=== PATIENT | male | born 1990 | race Caucasian/White ===

== ENCOUNTER → 2018-04-26 | Outpatient (CLI) | payer BC ==
--- NOTE | 2018-04-26 16:03 | XR ---
EXAMINATION TYPE: XR ankle complete 3 views LT, XR foot complete 3 views LT DATE OF EXAM: 04/26/2018 COMPARISON: NONE HISTORY: 27 year-old male left foot injury FINDINGS: Ankle: Ankle mortise is congruent with preservation of the distal tibiofibular overlap. Slight delineation t o the Achilles tendon. Subtalar joint is aligned. No acute fracture, subluxation, or dislocation. Inc idental small bone island within the medial metaphysis of the distal tibia. Foot: No acute fracture, subluxation, or dislocation. Tiny os peroneum noted. No acute fracture, subluxatio n, or dislocation. IMPRESSION: Ankle and foot without acute osseous abnormality seen.
== END | disposition home or self-care (01) ==
LOC: RADXRMAIN 13:54
PROVIDERS: ATTEND Family Medicine
DX: S99.922A Unspecified injury of left foot, initial encounter (principal)

== ENCOUNTER 2019-03-01 03:36 | Emergency (ER) | payer BC, OTHER ==
[2019-03-01] MEDS ORDERED: SODIUM CHLORIDE 0.9% 1,000 ML IV STA (03:47)
[2019-03-01] MEDS ORDERED: ONDANSETRON 4 MG/2 ML VIAL IVP STA (03:48)
[2019-03-01] MEDS ORDERED: LORazepam 2 MG/ML INJ IV STA (03:48)
--- NOTE | 2019-03-01 03:49 | ED ---
Arrhythmia/Palpitations HPI - General Chief Complaint: Arrhythmia/Palpitations Stated Complaint: Heart Palpitations/Chest burning Source: patient, family, RN notes reviewed, old records reviewed Mode of arrival: ambulatory Limitations: no limitations - History of Present Illness Initial Comments: This is a 28-year-old female the ER for evaluation. This male presents for evaluation of heart pain palpitations and anxiety. No significant medical history, takes no medications. Patient does admit to being and recent ames in [facility] with 4 days of straight drinking. states she's had anxiety thousand 900 inability to sleep denies fever. Patient states he feels like his heart is racing and it is very anxious. Denies chest pain. MD Complaint: rapid heart beat, "heart racing", palpitations -: hour(s) Context: occurred during rest Associated Symptoms: anxiety - Related Data Allergies Allergy/AdvReac Type Severity Reaction Status Date / Time No Known Allergies Allergy Verified 03/01/19 03:44 Review of Systems ROS Statement: Those systems with pertinent positive or pertinent negative responses have been documented in the HPI. ROS Other: All systems not noted in ROS Statement are negative. Past Medical History Past Medical History: No Reported History History of Any Multi-Drug Resistant Organisms: None Reported Past Surgical History: No Surgical Hx Reported Past Psychological History: No Psychological Hx Reported Smoking Status: Former smoker Past Alcohol Use History: Occasional Past Drug Use History: None Reported General Exam Limitations: no limitations General appearance: alert, in no apparent distress Head exam: Present: atraumatic, normocephalic, normal inspection Eye exam: Present: normal appearance, PERRL, EOMI. Absent: scleral icterus, conjunctival injection, periorbital swelling ENT exam: Present: normal exam, mucous membranes moist Neck exam: Present: normal inspection. Absent: tenderness, meningismus, lymphadenopathy Respiratory exam: Present: normal lung sounds bilaterally. Absent: respiratory distress, wheezes, rales, rhonchi, stridor Cardiovascular Exam: Present: regular rate, normal rhythm, normal heart sounds. Absent: systolic murmur, diastolic murmur, rubs, gallop, clicks GI/Abdominal exam: Present: soft, normal bowel sounds. Absent: distended, tenderness, guarding, rebound, rigid Extremities exam: Present: normal inspection, full ROM, normal capillary refill. Absent: tenderness, pedal edema, joint swelling, calf tenderness Back exam: Present: normal inspection Neurological exam: Present: alert, oriented X3, CN II-XII intact Psychiatric exam: Present: normal affect, normal mood Skin exam: Present: warm, dry, intact, normal color. Absent: rash Course Vital Signs 03/01/19 03/01/19 03:38 06:01 Temperature 98 F 98.3 F Pulse Rate 74 62 Respiratory 20 19 Rate Blood Pressure 155/81 131/82 O2 Sat by Pulse 99 98 Oximetry EKG Findings - EKG Comments: EKG Findings:: EKG shows sinus rhythm rate of 65, OH 126, QRS 04, QTc 405, Medical Decision Making - Medical Decision Making 28 male the ER for evaluation palpitations, no arrhythmia noted here in the ER labwork normal. A she is feeling better currently and can be discharged home - Lab Data Result diagrams: 03/01/19 03:55 03/01/19 03:55 Lab Results 03/01/19 03/01/19 03/01/19 Range/Units 03:55 03:55 03:55 WBC 6.8 (3.8-10.6) k/uL RBC 4.98 (4.30-5.90) m/uL Hgb 14.4 (13.0-17.5) gm/dL Hct 43.1 (39.0-53.0) % MCV 86.5 (80.0-100.0) fL MCH 28.9 (25.0-35.0) pg MCHC 33.4 (31.0-37.0) g/dL RDW 13.8 (11.5-15.5) % Plt Count 184 (150-450) k/uL Neutrophils % 62 % Lymphocytes % 27 % Monocytes % 6 % Eosinophils % 2 % Basophils % 1 % Neutrophils # 4.2 (1.3-7.7) k/uL Lymphocytes # 1.8 (1.0-4.8) k/uL Monocytes # 0.4 (0-1.0) k/uL Eosinophils # 0.1 (0-0.7) k/uL Basophils # 0.0 (0-0.2) k/uL D-Dimer 0.27 (<0.60) mg/L FEU Sodium 140 (137-145) mmol/L Potassium 4.1 (3.5-5.1) mmol/L Chloride 105 (98-107) mmol/L Carbon Dioxide 24 (22-30) mmol/L Anion Gap 11 mmol/L BUN 18 (9-20) mg/dL Creatinine 0.86 (0.66-1.25) mg/dL Est GFR (CKD-EPI)AfAm >90 (>60 ml/min/1.73 sqM) Est GFR (CKD-EPI)NonAf >90 (>60 ml/min/1.73 sqM) Glucose 134 H (74-99) mg/dL Calcium 9.9 (8.4-10.2) mg/dL Total Bilirubin 0.9 (0.2-1.3) mg/dL AST 37 (17-59) U/L ALT 27 (21-72) U/L Alkaline Phosphatase 90 (38-126) U/L Creatine Kinase 344 H (55-170) U/L Total Protein 7.2 (6.3-8.2) g/dL Albumin 5.0 (3.5-5.0) g/dL Lipase 183 (23-300) U/L Salicylates <1.0 mg/dL Acetaminophen <10.0 ug/mL Serum Alcohol <10 mg/dL Disposition Clinical Impression: Palpitations Disposition: HOME SELF-CARE Condition: Good Instructions (If sedation given, give patient instructions): Heart Palpitations (ED) Is patient prescribed a controlled substance at d/c from ED?: No Referrals: Shay Hong MD [Primary Care Provider] - 1-2 days
[2019-03-01 04:11] LABS: Basophils % (A) 1 %; Eosinophils # (A) 0.1 k/uL (0-0.7); Eosinophils % (A) 2 %; HCT 43.1 % (39.0-53.0); HGB 14.4 gm/dL (13.0-17.5); Lymphocytes # (A) 1.8 k/uL (1.0-4.8); Lymphocytes % (A) 27 %; MCH 28.9 pg (25.0-35.0); MCHC 33.4 g/dL (31.0-37.0); MCV 86.5 fL (80.0-100.0); Mean Platelet Volume 7.2; Monocytes # (A) 0.4 k/uL (0-1.0); Monocytes % (A) 6 %; Neutrophils # (A) 4.2 k/uL (1.3-7.7); Neutrophils % (A) 62 %; Platelet Count 184 k/uL (150-450); RBC 4.98 m/uL (4.30-5.90); RDW 13.8 % (11.5-15.5); WBC 6.8 k/uL (3.8-10.6)
[2019-03-01 04:21] LABS: ALT 27 U/L (21-72); AST 37 U/L (17-59); Acetaminophen <10.0 ug/mL; Alcohol <10 mg/dL; Alkaline Phosphatase 90 U/L (38-126); Anion Gap 11 mmol/L; Blood Urea Nitrogen 18 mg/dL (9-20); Calcium 9.9 mg/dL (8.4-10.2); Carbon Dioxide 24 mmol/L (22-30); Chloride 105 mmol/L (98-107); Creatine Kinase 344 U/L (55-170); Glucose 134 mg/dL (74-99); Lipase 183 U/L (23-300); Potassium 4.1 mmol/L (3.5-5.1); Salicylate <1.0 mg/dL; Sodium 140 mmol/L (137-145); Total Bilirubin 0.9 mg/dL (0.2-1.3); Total Protein 7.2 g/dL (6.3-8.2)
[2019-03-01 06:03] VITALS: BP 131/82; PULSE 62; RESP 19; TEMP 98.3
== END 2019-03-01 06:09 | disposition home or self-care (01) ==
LOC: EC 03:36
DX: R00.2 Palpitations (principal); F41.9 Anxiety disorder, unspecified; R07.89 Other chest pain; G47.00 Insomnia, unspecified; Z87.891 Personal history of nicotine dependence; Z53.20 Procedure and treatment not carried out because of patient's decision for unspecified reasons
CPT/HCPCS: 36415; 93005; 85379; 80053; 82550; 83690; 85025; 83520; 80329; 80320; 99285; 96374; 96361 ×2; J2060

== ENCOUNTER → 2022-12-16 | Outpatient (CLI) | payer MEDICAID ==
--- NOTE | 2022-12-16 10:20 | US ---
EXAMINATION TYPE: US axilla LT DATE OF EXAM: 12/16/2022 COMPARISON: NONE CLINICAL HISTORY: R22.2 swelling mass lump. Patient states feeling a lump in October and November. L ump and become bigger and is now visual in axilla. No recent illness. No recent vaccinations. TECHNIQUE: FINDINGS: Multiple images of patients palpable scanned. Two enlarged lymph nodes visualized. 1= Sh ort axis measurement= 2.4 cm and cortex = 12.7 mm. 2= Short axis measurement 1.5 cm and cortex = 8.0 mm . These do demonstrate central fatty hilum with central vascularity identified. IMPRESSION: There are 2 adjacent abnormally enlarged left axillary lymph nodes which raises concern for malignancy. Ultrasound-guided biopsy of the largest one is recommended.
== END | disposition home or self-care (01) ==
LOC: RADUSWWP 09:00
PROVIDERS: ATTEND Family Medicine
DX: R59.1 Generalized enlarged lymph nodes (principal)

== ENCOUNTER 2023-01-02 12:35 | Day surgery (SDC) | payer MEDICAID ==
[2023-01-02 13:10] VITALS: BP 131/84; PULSE 64; RESP 16; TEMP 98.3
--- NOTE | 2023-01-02 13:28 | US ---
ULTRASOUND GUIDED CORE BIOPSY LEFT AXILLARY LYMPHADENOPATHY: CLINICAL HISTORY: Left axilla lymphadenopathy FINDINGS: The procedure was explained to the patient. The risks, complications, benefits and alternatives were discussed and any questions were answered. Informed consent was obtained. Patient was placed supin e on the ultrasound table and prepped and draped in the usual sterile fashion. Utilizing a 18-gauge core biopsy needle, 3 passes were made into the left axilla lymphadenopathy. Patient was stable throughout the procedure. Pathology is pending. All elements of maximal barrier technique were utilized. IMPRESSION: 1. Successful ultrasound guided core biopsy left axilla lymphadenopathy.
== END 2023-01-02 13:30 | disposition home or self-care (01) ==
LOC: RADPROMAIN 12:35
PROVIDERS: ATTEND Family Medicine
DX: R59.0 Localized enlarged lymph nodes (principal)
CPT/HCPCS: 38505; 76942; 88305; 88341; 88342

== ENCOUNTER → 2023-01-16 | Outpatient (CLI) | payer MEDICAID ==
[2023-01-16 08:00] VITALS: BP 146/90; PULSE 97; RESP 17; TEMP 98
--- NOTE | 2023-01-16 08:39 | P.GSHP ---
History of Present Illness H&P Date: 01/16/23 Chief Complaint: axillary adenopathy Ahmet is a 32 year old white male seen in consultation for Dr. Shay Hong regarding adenopathy in his axilla. The patient states that he developed some discomfort under his arm in October, initially he did not feel anything at that time. However, the patient the first week of November thought that he felt a small lump. He was evaluated and nothing discrete was identified. However by December 04 the palpable mass was present. He underwent a core biopsy on January 02 and since that time he feels it has increased in size. The patient is complaining of discomfort spreading down his arm to his elbow and also on the left side of his chest. He has no other enlarged lymph nodes. He is not complaining of any other adenopathy. He has not had any trauma or infection in his left arm. He was sick for about 36 hours with fever and chills, about 2 weeks ago. He works as a nurse in the ER. Family History: paternal aunt: breast cancer Surgical History: wisdom Medical History: anxiety Social History: nicotine: none alcohol: every other week drugs: none - Constitutional Constitutional: Denies chills, Denies fever - EENT Eyes: denies blurred vision, denies pain Ears: deny: decreased hearing, tinnitus Ears, nose, mouth and throat: Denies headache, Denies sore throat - Breasts Breasts: bilateral: as per HPI - Cardiovascular Cardiovascular: Denies chest pain, Denies shortness of breath - Respiratory Respiratory: Denies cough, Denies 7 - Gastrointestinal Gastrointestinal: Denies abdominal pain, Denies diarrhea, Denies nausea, Denies vomiting - Genitourinary (Female) Genitourinary: Denies dysuria, Denies hematuria - Genitourinary (Male) Genitourinary: Denies dysuria, Denies hematuria - Musculoskeletal Musculoskeletal: Denies myalgias - Integumentary Integumentary: Denies pruritus, Denies rash - Neurological Neurological: Denies numbness, Denies weakness - Psychiatric Psychiatric: Denies anxiety, Denies depression - Endocrine Endocrine: Reports weight change, Denies fatigue - Hematologic/Lymphatic Comment: none - Allergic/Immunologic Allergic/Immunologic: Reports seasonal allergies Past Medical History Past Medical History: No Reported History History of Any Multi-Drug Resistant Organisms: None Reported Past Surgical History: No Surgical Hx Reported Additional Past Surgical History / Comment(s): lt ankle fracture at age 5 Past Anesthesia/Blood Transfusion Reactions: No Reported Reaction Past Psychological History: No Psychological Hx Reported Smoking Status: Never smoker Past Alcohol Use History: Occasional Past Drug Use History: None Reported - Past Family History Father Family Medical History: No Reported History Medications and Allergies Home Medications Medication Instructions Recorded Confirmed Type Diclofenac Sodium [Voltaren] 50 mg PO BID 12/30/22 01/16/23 History Allergies Allergy/AdvReac Type Severity Reaction Status Date / Time No Known Allergies Allergy Verified 01/16/23 07:57 Surgical - Exam Vital Signs Temp Pulse Resp BP Pulse Ox 98 F 97 17 146/90 98 01/16/23 07:57 01/16/23 07:57 01/16/23 07:57 01/16/23 07:57 01/16/23 07:57 - General no distress - Eyes normal ocular movement - Neck trachea midline - Respiratory normal respiratory effort, clear to auscultation - Cardiovascular Rhythm: regular Heart Sounds: normal: S1, S2 - Abdomen Abdomen: soft, non tender, no guarding, no rigid, no rebound - Integumentary normal turgor - Musculoskeletal normal gait - Psychiatric oriented to time, oriented to person, oriented to place, speech is normal, memory intact Examination of the cervical area does not reveal any cervical adenopathy of concern Axilla: Right axilla: No adenopathy of concern Left axilla: Approximately 3-1/2-4 cm node is palpable it is tender to palpation Right groin: No adenopathy of concern Left groin: No adenopathy of concern Liver is not enlarged Spleen is not enlarged Examination of the left upper extremity does not reveal any evidence of any scratches or lesions of concern Results Awaiting results of biopsy of the left axillary lymph node Assessment and Plan Assessment: Impression: Isolated left axillary enlarged lymph node Plan: Await results from [facility] Consider repeat core biopsy Consider discussion with medical oncology Patient to follow up next week Cc: Dr. Shay Hong
== END ==
LOC: WWCWWP 07:50
PROVIDERS: ATTEND Surgery
DX: R59.0 Localized enlarged lymph nodes (principal); Z79.1 Long term (current) use of non-steroidal anti-inflammatories (NSAID); Z80.3 Family history of malignant neoplasm of breast; Z87.891 Personal history of nicotine dependence

== ENCOUNTER → 2023-03-10 | Outpatient (CLI) | payer MEDICAID ==
[2023-03-10 10:34] LABS: HCT 38.8 % (39.0-53.0); HGB 13.1 gm/dL (13.0-17.5); MCH 28.2 pg (25.0-35.0); MCHC 33.8 g/dL (31.0-37.0); MCV 83.4 fL (80.0-100.0); Mean Platelet Volume 7.7; Platelet Count 194 k/uL (150-450); RBC 4.65 m/uL (4.30-5.90); RDW 12.5 % (11.5-15.5); WBC 7.8 k/uL (3.8-10.6)
[2023-03-10 11:08] LABS: Basophils # (M) 0.08 k/uL (0-0.2); Eosinophils # (M) 1.95 k/uL (0-0.7); Lymphocytes # (M) 2.11 k/uL (1.0-4.8); Monocytes # (M) 0.39 k/uL (0-1.0); Neutrophils # (M) 3.28 k/uL (1.3-7.7); Neutrophils % (M) 42 %; Nucleated Red Blood Cells 0 /100 WBC (0-0); RBC Morphology Normal; Total Cells Counted 100
[2023-03-10 17:48] LABS: BUN/Creat Ratio 17.27 Ratio; Chloride 101 mmol/L; Glucose 85 mg/dL; LDH 126 U/L; Potassium 4.1 mmol/L; Sodium 140 mmol/L
[2023-03-10 17:49] LABS: ALT 24 U/L; AST 23 U/L; Albumin 4.8 d/dL; Alkaline Phosphatase 131 U/L; Calcium 10.1 mg/dL; Carbon Dioxide 28.2 mmol/L; Lipase 66 U/L; T4, Free (Free Thyroxine) 1.45 ng/dL; Total Bilirubin 0.4 mg/dL; Total Protein 6.8 d/dL
== END | disposition home or self-care (01) ==
LOC: LABWHC1 09:49
PROVIDERS: ATTEND Internal Medicine Medical Oncology
DX: C77.9 Secondary and unspecified malignant neoplasm of lymph node, unspecified (principal)
CPT/HCPCS: 36415; 80053; 82533; 83615; 83690; 84439; 84443; 85025

== ENCOUNTER 2023-03-30 13:27 | Emergency (ER) | payer MEDICAID ==
[2023-03-30 13:36] VITALS: RESP 18
[2023-03-30] MEDS ORDERED: ACETAMINOPHEN TAB 500 MG TAB PO STA (14:18)
[2023-03-30] MEDS ORDERED: SODIUM CHLORIDE 0.9% 1,000 ML IV STA (14:18)
--- NOTE | 2023-03-30 14:19 | ED ---
General Adult HPI - General Source: patient Mode of arrival: ambulatory Limitations: no limitations <Bean Jovel - Last Filed: 03/30/23 16:03> <Etienne Alfaro - Last Filed: 03/31/23 00:13> - General Chief complaint: Fever Stated complaint: Fever, Chills Time Seen by Provider: 03/30/23 13:52 - History of Present Illness Initial comments: Dictation was produced using [employer] dictation software. please excuse any grammatical, word or spelling errors. Chief Complaint: 32-year-old male recently diagnosed stage III melanoma undergoing active chemotherapy presents to the ER for constitutional symptoms of fever History of Present Illness: 32-year-old male, months ago was diagnosed with st age III melanoma after discovery of lymph node in his left axilla. Patient undergoing chemotherapy. Patient's cancer care is primarily being performed at [facility]. Patient fell last 3-4 days has been having fever and constitutional symptoms. Tympanic temperature is that have been slowly increasing over the last few days. Patient denies any localizing symptoms. No sore throat, no abdominal pain. No dysuria. Patient is a nurse in our emergency department. He has been exposed to some sick individuals. Patient has been taking Motrin around the clock for the past couple days. He gets checked on by his oncology office once weekly. They called him today and he told that he is having fevers. He is instructed to come to the emergency room for evaluation. The ROS documented in this emergency department record has been reviewed and confirmed by me. Those systems with pertinent positive or negative responses have been documented in the HPI. All other systems are other negative and/or noncontributory. (Bean Jovel) - Related Data Home Medications Medication Instructions Recorded Confirmed Ibuprofen [Motrin Ib] 400 mg PO Q8H PRN 03/30/23 03/30/23 Mirtazapine 7.5 mg PO DAILY 03/30/23 03/30/23 Previous Rx's Medication Instructions Recorded Omeprazole [PriLOSEC] 20 mg PO DAILY 14 Days #14 cap 03/30/23 predniSONE [Deltasone] 40 mg PO DAILY 14 Days #28 tab 03/30/23 Allergies Allergy/AdvReac Type Severity Reaction Status Date / Time No Known Allergies Allergy Verified 03/30/23 14:06 Review of Systems ROS Other: All systems not noted in ROS Statement are negative. <Bean Jovel - Last Filed: 03/30/23 16:03> ROS Other: All systems not noted in ROS Statement are negative. <Etienne Alfaro - Last Filed: 03/31/23 00:13> ROS Statement: Those systems with pertinent positive or pertinent negative responses have been documented in the HPI. Past Medical History Past Medical History: No Reported History Additional Past Medical History / Comment(s): CA left armpit. History of Any Multi-Drug Resistant Organisms: None Reported Past Surgical History: No Surgical Hx Reported Additional Past Surgical History / Comment(s): lt ankle fracture at age 5 Past Anesthesia/Blood Transfusion Reactions: No Reported Reaction Past Psychological History: No Psychological Hx Reported Smoking Status: Never smoker Past Alcohol Use History: Occasional Past Drug Use History: None Reported - Past Family History Father Family Medical History: No Reported History <Bean Jovel - Last Filed: 03/30/23 16:03> General Exam Limitations: no limitations <Bean Jovel - Last Filed: 03/30/23 16:03> - General Exam Comments Initial Comments: PHYSICAL EXAM: General Impression: Alert and oriented x3, not in acute distress HEENT: Normocephalic atraumatic, extra-ocular movements intact, pupils equal and reactive to light bilaterally, mucous membranes moist. Cardiovascular: Heart regular rate and rhythm Chest: Able to complete full sentences, no retractions, no tachypnea Abdomen: abdomen soft, non-tender, non-distended, no organomegaly Musculoskeletal: Pulses present and equal in all extremities, no peripheral edema Motor: no focal deficits noted Neurological: CN II-XII grossly intact, no focal motor or sensory deficits noted Skin: Intact with no visualized rashes Psych: Normal affect and mood (Bean Jovel) Course Vital Signs 03/30/23 03/30/23 03/30/23 13:32 16:10 18:09 Temperature 102.1 F H 100.1 F H Pulse Rate 124 H 90 Respiratory 18 18 Rate Blood Pressure 161/83 141/92 O2 Sat by Pulse 99 99 Oximetry Medical Decision Making - Lab Data Result diagrams: 03/30/23 14:35 03/30/23 14:35 <Bean Jovel - Last Filed: 03/30/23 16:03> - Lab Data Result diagrams: 03/30/23 14:35 03/30/23 14:35 <Etienne Alfaro - Last Filed: 03/31/23 00:13> - Medical Decision Making Was pt. sent in by a medical professional or institution (, PA, FELT CEMENTER, urgent care, hospital, or retirement...) When possible be specific @ -Instructed by oncologist to come to the emergency department for evaluation Did you speak to anyone other than the patient for history (EMS, parent, family, police, friend...)? What history was obtained from this source @ -No Did you review nursing and triage notes (agree or disagree)? Why? @ -I reviewed and agree with nursing and triage notes Were old charts reviewed (outside hosp., previous admission, EMS record, old EKG, old radiological studies, urgent care reports/EKG's, retirement records)? Report findings @ -No old charts were reviewed Differential Diagnosis (chest pain, altered mental status, abdominal pain women, abdominal pain men, vaginal bleeding, musculoskeletal, weakness, fever, dyspnea, syncope, headache, dizziness, GI bleed, back pain, seizure, CVA, palpatations, mental health)? @ -Differential Fever: Pneumonia, viral URI, endocarditis, myocarditis, pericarditis, otitis, sinusitis, peritonsillar Abscess, retropharyngeal Abscess, epiglottitis, peritonitis, appendicitis, Alicia cystitis, diverticulitis, hepatitis, colitis, UTI, PID, TOA, pyelonephritis, prostatitis, epididymitis, meningitis, e ncephalitis, pulmonary embolism, CVA, thyroid storm, pancreatitis, adrenal crisis, cavernous sinus thrombosis, this is not meant to be an all-inclusive list. EKG interpreted by me (3pts min.). @ -None done X-rays interpreted by me (1pt min.). @ -None done CT interpreted by me (1pt min.). @ -None done U/S interpreted by me (1pt. min.). @ -None done What testing was considered but not performed or refused? (CT, X-rays, U/S, labs)? Why? @ -None What meds were considered but not given or refused? Why? @ -None Did you discuss the management of the patient with other professionals (professionals i.e. Dr., PA, FELT CEMENTER, lab, RT, psych nurse, social media editor, railroad dispatcher, teacher, sales officer, telehealth case manager)? Give summary @ -discussed with Dr. Mcguire patient's melanoma specialist. Request that labs be ordered for further evaluation. Most of the labs were discussed with Dr. Barajas she requests that she be contacted after ESR, free T3 level and cortisol level resulted. She requests the patient be started on 40 mg of prednisone daily. She is also instructed patient to not go to work [employer]. Phone number she can reach that is [phone] Was smoking cessation discussed for >3mins.? @ -No Was critical care preformed (if so, how long)? @ -No Were there social determinants of health that impacted care today? How? (Ho melessness, low income, unemployed, alcoholism, drug addiction, transportation, low edu. Level, literacy, decrease access to med. care, intermediate, rehab)? @ -No Was there de-escalation of care discussed even if they declined (Discuss DNR or withdrawal of care, Hospice)? DNR status @ -No What co-morbidities impacted this encounter? (DM, HTN, Smoking, COPD, CAD, Cancer, CVA, ARF, Chemo, Hep., AIDS, mental health diagnosis, sleep apnea, morbid obesity)? @ -Melanoma Was patient admitted / discharged? Hospital course, mention meds given and route, prescriptions, significant lab abnormalities, going to OR and other pertinent info. @ -32 y Old male with stage III melanoma presents to the ER with constitutional symptoms and fever. Undergoing immunotherapy. Vital signs shows temperature of 102.1 with heart rate of 124. Patient has no localizing symptoms. Patient i s signed out to oncoming physician for follow-up of pending labs. Undiagnosed new problem with uncertain prognosis? @ -No Drug Therapy requiring intensive monitoring for toxicity (Heparin, Nitro, Insulin, Cardizem)? @ -No Were any procedures done? @ -No Diagnosis/symptom? Acute, or Chronic, or Acute on Chronic? Uncomplicated (without systemic symptoms) or Complicated (systemic symptoms)? @ -1. Fever, complicated by immunotherapy Side effects of treatment? @ -No Exacerbation, Progression, or Severe Exacerbation? @ -No Poses a threat to life or bodily function? How? (Chest pain, [place], [place], pneumonia, PE, COPD, DKA, ARF, appy, cholecystitis, CVA, Diverticulitis, Homicidal, Suicidal, threat to staff... and all critical care pts) @ -yes (Bean Jovel) Patient signed out to me pending results of workup as well as reaching into the patient's melanoma specialist Dr. Mcguire. I did reevaluate the patient, and he is resting comfortable at this time. Fevers improving. Heart rate is improving. No acute complaints. Patient's labs after long delay did return, and I spoke with his specialist Dr. Mcguire. Patient appears to be having a hyperthyroidism likely from the immunotherapy. This is a known side effect. She recommends patient be started on prednisone which was already given. Patient has a prescription for prednisone at home 40 mg daily however I will provide him with an additional prescription QTC lost it. He has not been taking it as it was prescribed for something else a few weeks ago. He was in agreement this plan. She also would like the patient to be started on omeprazole daily 20 mg which was conveyed to the patient. She would like the patient to be resting and off work and he does not work for at least one week. Her office will contact him to arrange for outpatient laboratory studies later this week. Fever should be controlled on steroids kick in, I were Tylenol and Motrin are okay for antipyretic therapy. Patient is instructed to follow-up with Dr. Mcguire. Otherwise patient is stable for discharge home from her standpoint. I discussed this plan with the patient and he was in agreement. He will receive prescriptions for omeprazole as well as prednisone. Strict return precautions discussed. Discharge home at this time. I did offer him work note however he is off work for the next week. I will provide the patient with a prescription for prednisone 40 mg daily, omeprazole 20 mg daily. I instructed the patient to follow up with their PCP in the next 1-3 days. I explained that the patient should return to the emergency department if they experience any worsening symptoms. Strict return precautions were discussed with the patient. The patient expressed understanding of these instructions. I answered all questions that the patient had. The patient was discharged home in fair condition with their prescriptions and follow up sihla ghosh. Diagnosis/symptom? @ -Hyperthyroidism and fever secondary to immunotherapy for melanoma Acute, or Chronic, or Acute on Chronic? @ -Acute Uncomplicated (without systemic symptoms) or Complicated (systemic symptoms)? @ -Complicated Side effects of treatment? @ -none Exacerbation, Progression, or Severe Exacerbation] @ -no Poses a threat to life or bodily function? @ -Potentially (Etienne Alfaro) - Lab Data Lab Results 03/30/23 03/30/23 03/30/23 Range/Units 14:35 14:35 14:35 WBC 3.8 (3.8-10.6) k/uL RBC 4.16 L (4.30-5.90) m/uL Hgb 12.1 L (13.0-17.5) gm/dL Hct 34.4 L (39.0-53.0) % MCV 82.7 (80.0-100.0) fL MCH 29.1 (25.0-35.0) pg MCHC 35.2 (31.0-37.0) g/dL RDW 12.6 (11.5-15.5) % Plt Count 157 (150-450) k/uL MPV 7.2 Neutrophils % 63 % Lymphocytes % 22 % Monocytes % 7 % Eosinophils % 6 % Basophils % 1 % Neutrophils # 2.4 (1.3-7.7) k/uL Lymphocytes # 0.8 L (1.0-4.8) k/uL Monocytes # 0.3 (0-1.0) k/uL Eosinophils # 0.2 (0-0.7) k/uL Basophils # 0.0 (0-0.2) k/uL ESR 16 H (0-15) mm/hr Sodium 138 (137-145) mmol/L Potassium 4.0 (3.5-5.1) mmol/L Chloride 104 (98-107) mmol/L Carbon Dioxide 23 (22-30) mmol/L Anion Gap 11 mmol/L BUN 23 H (9-20) mg/dL Creatinine 0.89 (0.66-1.25) mg/dL Est GFR (CKD-EPI)AfAm >90 (>60 ml/min/1.73 sqM) Est GFR (CKD-EPI)NonAf >90 (>60 ml/min/1.73 sqM) Glucose 101 H (74-99) mg/dL Calcium 9.3 (8.4-10.2) mg/dL Total Bilirubin 0.5 (0.2-1.3) mg/dL AST 34 (17-59) U/L ALT 34 (4-49) U/L Alkaline Phosphatase 111 (38-126) U/L Creatine Kinase 91 (55-170) U/L C-Reactive Protein 4.5 H (<1.0) mg/dL Total Protein 6.5 (6.3-8.2) g/dL Albumin 4.1 (3.5-5.0) g/dL Lipase 301 H (23-300) U/L TSH <0.015 L (0.465-4.680) mIU/L Free T4 2.06 (0.78-2.19) ng/dL Free T3 pg/mL (2.8-5.3) pg/ml Cortisol ug/dL Urine Color Urine Appearance (Clear) Urine pH (5.0-8.0) Ur Specific [place] (1.001-1.035) Urine Protein (Negative) Urine Glucose (UA) (Negative) Urine Ketones (Negative) Urine Blood (Negative) Urine Nitrite (Negative) Urine Bilirubin (Negative) Urine Urobilinogen (<2.0) mg/dL Ur Leukocyte Esterase (Negative) Influenza Type A (PCR) Not Detected (Not Detectd) Influenza Type B (PCR) Not Detected (Not Detectd) RSV (PCR) Not Detected (Not Detectd) SARS-CoV-2 (PCR) Not Detected (Not Detectd) 03/30/23 03/30/23 03/30/23 Range/Units 14:35 14:35 14:39 WBC (3.8-10.6) k/uL RBC (4.30-5.90) m/uL Hgb (13.0-17.5) gm/dL Hct (39.0-53.0) % MCV (80.0-100.0) fL MCH (25.0-35.0) pg MCHC (31.0-37.0) g/dL RDW (11.5-15.5) % Plt Count (150-450) k/uL MPV Neutrophils % % Lymphocytes % % Monocytes % % Eosinophils % % Basophils % % Neutrophils # (1.3-7.7) k/uL Lymphocytes # (1.0-4.8) k/uL Monocytes # (0-1.0) k/uL Eosinophils # (0-0.7) k/uL Basophils # (0-0.2) k/uL ESR (0-15) mm/hr Sodium (137-145) mmol/L Potassium (3.5-5.1) mmol/L Chloride (98-107) mmol/L Carbon Dioxide (22-30) mmol/L Anion Gap mmol/L BUN (9-20) mg/dL Creatinine (0.66-1.25) mg/dL Est GFR (CKD-EPI)AfAm (>60 ml/min/1.73 sqM) Est GFR (CKD-EPI)NonAf (>60 ml/min/1.73 sqM) Glucose (74-99) mg/dL Calcium (8.4-10.2) mg/dL Total Bilirubin (0.2-1.3) mg/dL AST (17-59) U/L ALT (4-49) U/L Alkaline Phosphatase (38-126) U/L Creatine Kinase (55-170) U/L C-Reactive Protein (<1.0) mg/dL Total Protein (6.3-8.2) g/dL Albumin (3.5-5.0) g/dL Lipase (23-300) U/L TSH (0.465-4.680) mIU/L Free T4 (0.78-2.19) ng/dL Free T3 pg/mL 11.6 H (2.8-5.3) pg/ml Cortisol 7 ug/dL Urine Color Yellow Urine Appearance Clear (Clear) Urine pH 8.0 (5.0-8.0) Ur Specific [place] 1.019 (1.001-1.035) Urine Protein Negative (Negative) Urine Glucose (UA) Negative (Negative) Urine Ketones Negative (Negative) Urine Blood Negative (Negative) Urine Nitrite Negative (Negative) Urine Bilirubin Negative (Negative) Urine Urobilinogen 3.0 (<2.0) mg/dL Ur Leukocyte Esterase Negative (Negative) Influenza Type A (PCR) (Not Detectd) Influenza Type B (PCR) (Not Detectd) RSV (PCR) (Not Detectd) SARS-CoV-2 (PCR) (Not Detectd) Disposition <Bean Jovel - Last Filed: 03/30/23 16:03> Is patient prescribed a controlled substance at d/c from ED?: No Time of Disposition: 18:05 <Etienne Alfaro - Last Filed: 03/31/23 00:13> Clinical Impression: Hyperthyroidism, Immunotherapy, Fever, Melanoma Disposition: HOME SELF-CARE Condition: Fair Instructions (If sedation given, give patient instructions): Fever in Adults (ED) Additional Instructions: Follow up with Dr. Mcguire. Take daily prednisone 40mg and daily omeprazole 20mg. Take off work for the near future, relax, do not over exert yourself. Will need repeat labs later this week and Dr. Mcguire will arrange. Prescriptions: predniSONE [Deltasone] 40 mg PO DAILY 14 Days #28 tab Omeprazole [PriLOSEC] 20 mg PO DAILY 14 Days #14 cap Referrals: Shay Hong MD [Primary Care Provider] - 1-2 days
[2023-03-30 14:47] LABS: Basophils % (A) 1 %; Eosinophils # (A) 0.2 k/uL (0-0.7); Eosinophils % (A) 6 %; HCT 34.4 % (39.0-53.0); HGB 12.1 gm/dL (13.0-17.5); Lymphocytes # (A) 0.8 k/uL (1.0-4.8); Lymphocytes % (A) 22 %; MCH 29.1 pg (25.0-35.0); MCHC 35.2 g/dL (31.0-37.0); MCV 82.7 fL (80.0-100.0); Mean Platelet Volume 7.2; Monocytes # (A) 0.3 k/uL (0-1.0); Monocytes % (A) 7 %; Neutrophils # (A) 2.4 k/uL (1.3-7.7); Neutrophils % (A) 63 %; Platelet Count 157 k/uL (150-450); RBC 4.16 m/uL (4.30-5.90); RDW 12.6 % (11.5-15.5); WBC 3.8 k/uL (3.8-10.6)
[2023-03-30 14:53] LABS: Glucose 101 mg/dL (74-99)
[2023-03-30 14:57] LABS: ALT 34 U/L (4-49); AST 34 U/L (17-59); African American GFR (CKD) >90 (>60 ml/min/1.73 sqM); Albumin 4.1 g/dL (3.5-5.0); Alkaline Phosphatase 111 U/L (38-126); Anion Gap 11 mmol/L; Blood Urea Nitrogen 23 mg/dL (9-20); C Reactive Protein 4.5 mg/dL (<1.0); Calcium 9.3 mg/dL (8.4-10.2); Carbon Dioxide 23 mmol/L (22-30); Chloride 104 mmol/L (98-107); Creatine Kinase 91 U/L (55-170); Lipase 301 U/L (23-300); Non-African American GFR(CKD) >90 (>60 ml/min/1.73 sqM); Sodium 138 mmol/L (137-145); Total Bilirubin 0.5 mg/dL (0.2-1.3); Total Protein 6.5 g/dL (6.3-8.2)
[2023-03-30 15:10] LABS: T4, Free (Free Thyroxine) 2.06 ng/dL (0.78-2.19)
[2023-03-30 15:17] LABS: Appearance,Urine Clear (Clear); Bilirubin,Urine Negative (Negative); Blood,Urine Negative (Negative); Color,Urine Yellow; Glucose,Urine (UA) Negative (Negative); Ketones,Urine Negative (Negative); Leukocyte Esterase,Urine Negative (Negative); Nitrite,Urine Negative (Negative); Protein,Urine Negative (Negative); Specific Gravity,Urine 1.019 (1.001-1.035)
[2023-03-30] MEDS ORDERED: predniSONE 20 MG TAB PO STA (15:53)
[2023-03-30 16:10] VITALS: TEMP 100.1
[2023-03-30 16:47] LABS: Erythrocyte Sedimentation Rate 16 mm/hr (0-15)
[2023-03-30] MEDS ORDERED: IBUPROFEN 600 MG TAB PO STA (17:46)
[2023-03-30 18:10] VITALS: BP 141/92; PULSE 90
== END 2023-03-30 18:17 | disposition home or self-care (01) ==
LOC: EC 13:27
DX: Z51.12 Encounter for antineoplastic immunotherapy (principal); E05.90 Thyrotoxicosis, unspecified without thyrotoxic crisis or storm; R50.9 Fever, unspecified; C43.9 Malignant melanoma of skin, unspecified; Z20.822 Contact with and (suspected) exposure to COVID-19
CPT/HCPCS: 36415; 84439; 84481; 80053; 85652; 82533; 82550; 83690; 84443; 85025; 86140; 81003; 87040; 87636; 99283; 96360; J7512

== ENCOUNTER → 2023-04-01 | Outpatient (CLI) | payer MEDICAID ==
--- NOTE | 2023-04-01 12:26 | P.SLEEP ---
History of Present Illness DATE: 04/01/2023 CONSULTATION/NEW PATIENT EVALUATION HISTORY OF PRESENT ILLNESS/SLEEP-WAKE EVALUATION: 32 year old gentleman had been evaluated in the sleep center for possible obstructive sleep apnea hypopnea syndrome. SLEEP SCHEDULE: Usually sleep schedule from 9:30 AM until about 5:30 PM, patient works at fast food shift supervisor. On days off patient sleep schedule significantly varies. FALLING ASLEEP: Patient has difficulties with falling asleep. DURING SLEEP: Patient snores and has been told about episodes of stop breathing during the sleep. Patient may wake up from sleep to use the restroom. No history of hypnogogical hallucinations, sleep paralysis, or cataplexy. DURING THE DAY/WAKE STATE: After sleep patient feels tired and sleepy. [place] sleepiness scale is 4. Patient feels tiredness and sleepiness for many years. PAST MEDICAL HISTORY: Melanoma stage IIIc on chemotherapy for preparation for surgical treatment, seasonal ALLERGY. PAST SURGICAL HISTORY: None. MEDICATIONS: Prednisone, omeprazole, mirtazapine. SOCIAL HISTORY: Negative for smoking or using alcohol. FAMILY HISTORY: Restless leg syndrome. REVIEW OF SYSTEMS: Snoring, awakenings from sleep. No fevers. No double vision. No recent chest pain. No shortness of breath. No abdominal pain. No bleeding episodes. No blood in urine. No seizure episodes. PHYSICAL EXAMINATION: GENERAL: A pleasant patient without any distress. VITAL SIGNS: BP 139/86 , HR 113 , RR 12 , weight 182.6 pounds, height 5 foot 11 inches, body mass index 28, temperature 97.9, oxygen saturation at room air 100% . HEENT: PERRLA, EOMI. Evaluation of oropharynx showed tongue protrudes midline, low position of soft palate Mallampati 4, retrognathia 2 mm. NECK: Supple. No JVD. Thyroid is not palpable. 15.5 inches in circumference. LUNGS: Clear to percussion and to auscultation. Good air exchange. No wheezing or rhonchi. HEART: S1, S2 regular. No murmurs, gallops or rubs. ABDOMEN: Soft and nontender. Bowel sounds are present. No organomegaly appreciated. EXTREMITIES: No clubbing or cyanosis. Lymph nodes around 1 cm palpable under left armpit. HEAT TREATER HELPER: Awake, alert, and oriented x3. Cranial nerves 2 to 7 intact. There is no fasciculation or atrophy noted. No focal deficits observed. ASSESSMENT: 1. Snoring, witnessed episodes of stop breathing during the sleep, extremely low position of soft palate Mallampati 4. Obstructive sleep apnea hypopnea syndrome. 2. Melanoma in the area of left armpit, stage IIIc. Patient is on chemotherapy as preparation for surgical treatment. 3. Tachycardia. 4. History of seasonal ALLERGY. 5. 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 PLAN: 1. Home sleep apnea test for evaluation of patient's breathing during sleep. 2. Following plan after reading sleep study 3. Preferable position during sleep on the side. 4. No driving if patient feels any sleepiness. Patient is aware of civil and criminal liability for unsafe driving. 5. Sleep hygiene with regular sleep time for at least 7.5-8 hours. 6. Watching weight. Thank you very much for referring this patient for consultation. Sincerely, Omer Lynn MD, PhD, FAASM. Diplomat of [place] [employer], Sleep Medicine Board by [place] [employer] [place] [employer] of [facility] [place] Past Medical History Past Medical History: No Reported History Additional Past Medical History / Comment(s): CA left armpit. History of Any Multi-Drug Resistant Organisms: None Reported Past Surgical History: No Surgical Hx Reported Additional Past Surgical History / Comment(s): lt ankle fracture at age 5 Past Anesthesia/Blood Transfusion Reactions: No Reported Reaction Past Psychological History: No Psychological Hx Reported Smoking Status: Never smoker Past Alcohol Use History: Occasional Past Drug Use History: None Reported - Past Family History Father Family Medical History: No Reported History Medications and Allergies Home Medications Medication Instructions Recorded Confirmed Type Ibuprofen [Motrin Ib] 400 mg PO Q8H PRN 03/30/23 03/30/23 History Mirtazapine 7.5 mg PO DAILY 03/30/23 03/30/23 History Omeprazole [PriLOSEC] 20 mg PO DAILY 14 Days #14 cap 03/30/23 Rx predniSONE [Deltasone] 40 mg PO DAILY 14 Days #28 tab 03/30/23 Rx Allergies Allergy/AdvReac Type Severity Reaction Status Date / Time No Known Allergies Allergy Verified 03/30/23 14:06 Sleep Note - Sleep Note Sleep Note: Temperature: Pulse Rate: Respiratory Rate: Blood Pressure: SpO2: Height: Weight: BMI: Neck Circumference:
== END ==
LOC: 3 N SLEEP 11:39
PROVIDERS: ATTEND Internal Medicine
DX: G47.33 Obstructive sleep apnea (adult) (pediatric) (principal); J30.2 Other seasonal allergic rhinitis; R00.0 Tachycardia, unspecified; C43.9 Malignant melanoma of skin, unspecified; Z51.11 Encounter for antineoplastic chemotherapy; Z87.891 Personal history of nicotine dependence
CPT/HCPCS: 99211

== ENCOUNTER → 2023-04-02 | Outpatient (CLI) | payer MEDICAID ==
[2023-04-02 09:11] LABS: T4, Free (Free Thyroxine) 2.18 ng/dL (0.78-2.19)
== END | disposition home or self-care (01) ==
LOC: LABMAIN 08:17
PROVIDERS: ATTEND Internal Medicine Medical Oncology
DX: C77.9 Secondary and unspecified malignant neoplasm of lymph node, unspecified (principal)
CPT/HCPCS: 84439; 84443; 84481

== ENCOUNTER → 2023-04-07 | Outpatient (CLI) | payer MEDICAID ==
[2023-04-08 02:54] LABS: T4, Free (Free Thyroxine) 2.04 ng/dL (0.78-2.19)
== END | disposition home or self-care (01) ==
LOC: RADXRMAIN 05:50
PROVIDERS: ATTEND Internal Medicine Medical Oncology
DX: Z01.812 Encounter for preprocedural laboratory examination (principal)
CPT/HCPCS: 84439; 84443; 84481

== ENCOUNTER → 2023-05-15 | Outpatient (CLI) | payer MEDICAID ==
[2023-05-15 13:33] LABS: Basophils % (A) 0 %; Eosinophils # (A) 0.2 k/uL (0-0.7); Eosinophils % (A) 4 %; HCT 43.3 % (39.0-53.0); HGB 14.7 gm/dL (13.0-17.5); Lymphocytes # (A) 2.1 k/uL (1.0-4.8); Lymphocytes % (A) 34 %; MCH 27.5 pg (25.0-35.0); MCV 80.7 fL (80.0-100.0); Mean Platelet Volume 6.6; Monocytes # (A) 0.4 k/uL (0-1.0); Monocytes % (A) 7 %; Neutrophils # (A) 3.4 k/uL (1.3-7.7); Neutrophils % (A) 54 %; RBC 5.36 m/uL (4.30-5.90); RDW 13.3 % (11.5-15.5); WBC 6.4 k/uL (3.8-10.6)
[2023-05-15 13:37] LABS: Platelet Count 229 k/uL (150-450)
[2023-05-15 13:55] LABS: ALT 152 U/L (4-49); AST 69 U/L (17-59); African American GFR (CKD) >90 (>60 ml/min/1.73 sqM); Albumin 4.6 g/dL (3.5-5.0); Albumin/Globulin Ratio 1.5; Alkaline Phosphatase 97 U/L (38-126); Anion Gap 13 mmol/L; Blood Urea Nitrogen 16 mg/dL (9-20); Calcium 9.8 mg/dL (8.4-10.2); Carbon Dioxide 24 mmol/L (22-30); Chloride 103 mmol/L (98-107); Creatine Kinase 78 U/L (55-170); Globulin 3.1 g/dL; Glucose 77 mg/dL (74-99); LDH 141 U/L (120-246); Lipase 342 U/L (23-300); Non-African American GFR(CKD) >90 (>60 ml/min/1.73 sqM); Potassium 4.3 mmol/L (3.5-5.1); Sodium 140 mmol/L (137-145); Total Bilirubin 0.6 mg/dL (0.2-1.3); Total Protein 7.7 g/dL (6.3-8.2)
[2023-05-15 14:12] LABS: T4, Free (Free Thyroxine) 1.14 ng/dL (0.78-2.19)
== END | disposition home or self-care (01) ==
LOC: LABMAIN 13:00 → MERGE 13:00
PROVIDERS: ATTEND Internal Medicine Medical Oncology
DX: C77.9 Secondary and unspecified malignant neoplasm of lymph node, unspecified (principal); E05.90 Thyrotoxicosis, unspecified without thyrotoxic crisis or storm; Z92.89 Personal history of other medical treatment
CPT/HCPCS: 80053; 82533; 82550; 83615; 83690; 84439; 84443; 85025

== ENCOUNTER → 2023-05-25 | Outpatient (CLI) | payer MEDICAID ==
[2023-05-25 08:25] LABS: ALT 70 U/L (4-49); AST 37 U/L (17-59); African American GFR (CKD) >90 (>60 ml/min/1.73 sqM); Albumin 4.8 g/dL (3.5-5.0); Albumin/Globulin Ratio 1.8; Alkaline Phosphatase 100 U/L (38-126); Blood Urea Nitrogen 18 mg/dL (9-20); Calcium 9.7 mg/dL (8.4-10.2); Carbon Dioxide 30 mmol/L (22-30); Globulin 2.7 g/dL; Glucose 100 mg/dL (74-99); Lipase 366 U/L (23-300); Non-African American GFR(CKD) >90 (>60 ml/min/1.73 sqM); Total Bilirubin 0.5 mg/dL (0.2-1.3); Total Protein 7.5 g/dL (6.3-8.2)
[2023-05-25 08:43] LABS: Anion Gap 8 mmol/L; Chloride 101 mmol/L (98-107); Potassium 3.8 mmol/L (3.5-5.1); Sodium 139 mmol/L (137-145)
== END | disposition home or self-care (01) ==
LOC: LABMAIN 07:52
PROVIDERS: ATTEND Internal Medicine Medical Oncology
DX: C77.9 Secondary and unspecified malignant neoplasm of lymph node, unspecified (principal); Z92.89 Personal history of other medical treatment; R74.8 Abnormal levels of other serum enzymes
CPT/HCPCS: 80053; 83690

== ENCOUNTER → 2023-05-29 | Outpatient (CLI) | payer MEDICAID ==
--- NOTE | 2023-05-29 11:53 | US ---
EXAMINATION TYPE: US abdomen limited DATE OF EXAM: 05/29/2023 COMPARISON: NONE CLINICAL INDICATION: Male, 32 years old with history of R74.8 ABNORMAL LEVELS OF OTHER SERUM ENZYMES; elevated labs, stage 3 melanoma TECHNIQUE: Multiple sonographic images of the right upper quadrant are obtained. FINDINGS: EXAM MEASUREMENTS: Liver Length: 15.3 cm Gallbladder Wall: 0.1 cm CBD: 0.5 cm Right Kidney: 10.0 x 5.1 x 5.0 cm Pancreas: wnl Liver: wnl Gallbladder: wnl Evidence for sonographic Moreno's sign: no CBD: wnl Right Kidney: wnl IMPRESSION: No evidence for suspicious mass. No acute process.
== END | disposition home or self-care (01) ==
LOC: RADUSWWP 09:34
PROVIDERS: ATTEND Internal Medicine Medical Oncology
DX: C77.9 Secondary and unspecified malignant neoplasm of lymph node, unspecified (principal); C80.1 Malignant (primary) neoplasm, unspecified; R74.8 Abnormal levels of other serum enzymes; R79.89 Other specified abnormal findings of blood chemistry; Z92.89 Personal history of other medical treatment
CPT/HCPCS: 76705

== ENCOUNTER → 2023-05-29 | Outpatient (CLI) | payer MEDICAID ==
[2023-05-29 14:05] LABS: ALT 48 U/L (4-49); AST 36 U/L (17-59); African American GFR (CKD) >90 (>60 ml/min/1.73 sqM); Albumin 4.8 g/dL (3.5-5.0); Albumin/Globulin Ratio 1.8; Alkaline Phosphatase 95 U/L (38-126); Anion Gap 13 mmol/L; Blood Urea Nitrogen 18 mg/dL (9-20); Calcium 9.5 mg/dL (8.4-10.2); Carbon Dioxide 26 mmol/L (22-30); Chloride 102 mmol/L (98-107); Globulin 2.6 g/dL; Glucose 69 mg/dL (74-99); Lipase 244 U/L (23-300); Non-African American GFR(CKD) >90 (>60 ml/min/1.73 sqM); Sodium 141 mmol/L (137-145); Total Bilirubin 0.6 mg/dL (0.2-1.3); Total Protein 7.4 g/dL (6.3-8.2)
== END | disposition home or self-care (01) ==
LOC: LABMAIN 12:39
PROVIDERS: ATTEND Internal Medicine Medical Oncology
DX: R74.8 Abnormal levels of other serum enzymes (principal)
CPT/HCPCS: 80053; 83690

== ENCOUNTER → 2023-06-08 | Outpatient (CLI) | payer MEDICAID ==
[2023-06-08 02:38] LABS: ALT 34 U/L (4-49); AST 30 U/L (17-59); African American GFR (CKD) >90 (>60 ml/min/1.73 sqM); Albumin 4.7 g/dL (3.5-5.0); Albumin/Globulin Ratio 1.7; Alkaline Phosphatase 96 U/L (38-126); Anion Gap 11 mmol/L; Blood Urea Nitrogen 22 mg/dL (9-20); Calcium 10.2 mg/dL (8.4-10.2); Carbon Dioxide 25 mmol/L (22-30); Chloride 104 mmol/L (98-107); Globulin 2.7 g/dL; Glucose 98 mg/dL (74-99); Lipase 276 U/L (23-300); Non-African American GFR(CKD) >90 (>60 ml/min/1.73 sqM); Potassium 4.1 mmol/L (3.5-5.1); Sodium 140 mmol/L (137-145); Total Bilirubin 0.4 mg/dL (0.2-1.3); Total Protein 7.4 g/dL (6.3-8.2)
== END | disposition home or self-care (01) ==
LOC: LABMAIN 01:47
PROVIDERS: ATTEND Internal Medicine Medical Oncology
DX: C77.9 Secondary and unspecified malignant neoplasm of lymph node, unspecified (principal); Z92.89 Personal history of other medical treatment; R74.8 Abnormal levels of other serum enzymes
CPT/HCPCS: 80053; 83690

== ENCOUNTER → 2023-06-15 | Outpatient (CLI) | payer MEDICAID ==
[2023-06-16 02:01] LABS: HCT 38.8 % (39.6-50.0); HGB 12.7 d/dL (13.0-17.0); MCH 26.3 pg (27.0-32.0); MCHC 32.7 d/dL (32.0-37.0); MCV 80.5 FL (80.0-97.0); Mean Platelet Volume 10.4 FL (9.5-12.2); NRBC Per 100 WBC 0 X 10*3/uL (0.00-0.01); Platelet Count 218 X 10*3/uL (140-440); RBC 4.82 X 10*6/uL (4.40-5.60); RDW 13.2 % (11.5-14.5); WBC 7.79 X 10*3/uL (4.50-10.00)
[2023-06-16 02:13] LABS: Erythrocyte Sedimentation Rate 16 mm/Hr (0-15)
[2023-06-16 06:03] LABS: ALT 34 U/L (10-49); AST 28 U/L (14-35); Albumin 4.9 d/dL (3.8-4.9); Albumin/Globulin Ratio 2.33 Ratio (1.60-3.17); Alkaline Phosphatase 110 U/L (41-126); BUN/Creat Ratio 24.56 Ratio (12.00-20.00); Blood Urea Nitrogen 22.1 mg/dL (9.0-27.0); Calcium 9.7 mg/dL (8.7-10.3); Carbon Dioxide 24.2 mmol/L (21.6-31.8); Chloride 105 mmol/L (96-109); Globulin 2.1 d/dL (1.6-3.3); Glucose 85 mg/dL (70-110); Lipase 54 U/L (14-60); Potassium 4.4 mmol/L (3.5-5.5); Sodium 142 mmol/L (135-145); Total Bilirubin 0.3 mg/dL (0.3-1.2)
== END | disposition home or self-care (01) ==
LOC: LABMAIN 19:02
PROVIDERS: ATTEND Internal Medicine Medical Oncology
DX: C43.9 Malignant melanoma of skin, unspecified (principal); Z92.89 Personal history of other medical treatment; R74.8 Abnormal levels of other serum enzymes
CPT/HCPCS: 80053; 83690; 85027; 85652; 86140

== ENCOUNTER → 2023-08-23 | Outpatient (CLI) | payer MEDICAID ==
--- NOTE | 2023-08-23 08:29 | XR ---
EXAMINATION TYPE: XR foot complete bilateral DATE OF EXAM: 08/23/2023 2:17 AM CLINICAL INDICATION:Male, 32 years old with history of PAIN IN LEFT AND RIGHT FOOT; [facility] COMPARISON: None. TECHNIQUE: The bilateral foot was examined in the AP, oblique, and lateral projections. FINDINGS: Bilateral feet- No evidence of any acute osseous pathology. No evidence of soft tissue swelling. Joints are preserve d. IMPRESSION: No evidence of acute process.
== END | disposition home or self-care (01) ==
LOC: RADXRMAIN 01:13
PROVIDERS: ATTEND Internal Medicine Rheumatology
DX: M79.671 Pain in right foot (principal); M79.672 Pain in left foot

== ENCOUNTER → 2023-08-23 | Outpatient (CLI) | payer MEDICAID ==
[2023-08-23 08:41] LABS: Basophils # (A) 0.05 X 10*3/uL (0.00-0.10); Basophils % (A) 0.8 %; Eosinophils # (A) 0.18 X 10*3/uL (0.04-0.35); Eosinophils % (A) 2.8 %; HCT 38.9 % (39.6-50.0); HGB 13.6 g/dL (13.0-17.0); Lymphocytes # (A) 2.87 X 10*3/uL (0.90-5.00); Lymphocytes % (A) 44.4 %; MCH 27.6 pg (27.0-32.0); MCV 79.1 FL (80.0-97.0); Mean Platelet Volume 10.3 FL (9.5-12.2); Monocytes # (A) 0.34 X 10*3/uL (0.20-1.00); Monocytes % (A) 5.3 %; NRBC Per 100 WBC 0 X 10*3/uL (0.00-0.01); Neutrophils # (A) 3.02 X 10*3/uL (1.80-7.70); Neutrophils % (A) 46.5 %; Platelet Count 199 X 10*3/uL (140-440); RBC 4.92 X 10*6/uL (4.40-5.60); RDW 14.2 % (11.5-14.5); WBC 6.47 X 10*3/uL (4.50-10.00)
[2023-08-23 09:00] LABS: Hepatitis B Surface Antigen Nonreactive; Hepatitis C IgG Antibody Nonreactive
[2023-08-23 09:10] LABS: Erythrocyte Sedimentation Rate 2 mm/Hr (0-15)
[2023-08-23 09:40] LABS: ALT 18 U/L (10-49); AST 21 U/L (14-35); Alkaline Phosphatase 93 U/L (41-126); Blood Urea Nitrogen 19.4 mg/dL (9.0-27.0); C Reactive Protein <0.30 mg/dL (0.00-0.80); Calcium 9.9 mg/dL (8.7-10.3); Carbon Dioxide 21.9 mmol/L (21.6-31.8); Chloride 105 mmol/L (96-109); Creatine Kinase 116 U/L (35-257); Glucose 95 mg/dL (70-110); Potassium 3.8 mmol/L (3.5-5.5); Rheumatoid Factor, Qnt <15 IU/mL (0-15); Sodium 143 mmol/L (135-145); T4, Free (Free Thyroxine) 1.28 ng/dL (0.80-1.80); Total Bilirubin 0.3 mg/dL (0.3-1.2); Uric Acid 6.7 mg/dL (3.7-8.7)
[2023-08-24 11:30] LABS: Angiotensin-1 Converting Enz. 26 U/L (8-52)
[2023-08-24 13:50] LABS: Anti-Smith Ab Interp Negative (Negative); Cardiolipin Ab IgG Interp Negative (Negative); Cardiolipin Ab IgM Interp Negative (Negative); Cardiolipin IgM Antibody <1.5 U/mL; Centromere Antibody <0.2 AI; Centromere Antibody Interp Negative (Negative); DNA Double-Stranded Negative (Negative); Scleroderma SC-70 Ab <0.2 AI
[2023-08-24 14:34] LABS: C-ANCA <1:20 Titer (<1:20)
[2023-08-24 19:26] LABS: Cyclic Citrull Pep IgG Unit <1.5 U/mL (<=3.9); Cyclic Citrullinated Pep IgG Negative
== END | disposition home or self-care (01) ==
LOC: LABMAIN 01:19
PROVIDERS: ATTEND Internal Medicine Rheumatology
DX: M13.0 Polyarthritis, unspecified (principal)
CPT/HCPCS: 80053; 82164; 82306; 82550; 84439; 84443; 84550; 85025; 85652; 86038; 86140; 86147; 86160; 86200; 86225; 86235; 86255; 86431; 86803; 87340

== ENCOUNTER → 2023-09-07 | Outpatient (CLI) | payer MEDICAID ==
[2023-09-07 16:33] LABS: Appearance,Urine Clear (Clear); Bilirubin,Urine Negative (Negative); Blood,Urine Negative (Negative); Color,Urine Yellow (Yellow); Ketones,Urine Negative (Negative); Nitrite,Urine Negative (Negative); PH, Urine 5.5; Specific Gravity,Urine 1.017 (1.001-1.030); Urobilinogen,Urine 0.2 E.U./DL
[2023-09-07 19:40] LABS: Immunoglobulin M 59.1 mg/dL (40.0-280.0)
[2023-09-08 09:03] LABS: HLA B27 POSITIVE
[2023-09-08 15:10] LABS: Free Kappa Lt Chain Qnt, Serum 1.04 mg/dL (0.33-1.94)
== END | disposition home or self-care (01) ==
LOC: LABWHC1 11:38
PROVIDERS: ATTEND Internal Medicine Rheumatology
DX: M13.0 Polyarthritis, unspecified (principal)
CPT/HCPCS: 36415; 81003; 83883; 84165; 85613; 85730; 86162; 86334; 86812

== ENCOUNTER → 2023-09-24 | Outpatient (CLI) | payer MEDICAID ==
--- NOTE | 2023-09-24 13:19 | XR ---
EXAMINATION TYPE: XR pelvis AP view DATE OF EXAM: 09/24/2023 Comparison: None Clinical History: 32-year-old male R76.8 OTHER SPECIFIED ABNORMAL IMMUNOLOGICAL FINDING Findings: SI joints are symmetric and intact as is the pubic symphysis. Superior femoral head neck junction oss eous excrescence left hip. Joint space at the hips is relatively maintained. Bilateral crossover sign s of the hips. No acute fracture, subluxation, dislocation. Impression: Subtle bony changes mentioned above may contribute to femoral acetabular impingement syndrome. Correl ate with physical exam testing. Otherwise, no acute osseous abnormality seen.
== END | disposition home or self-care (01) ==
LOC: RADXRMAIN 05:01
PROVIDERS: ATTEND Internal Medicine Rheumatology
DX: R76.8 Other specified abnormal immunological findings in serum (principal)
CPT/HCPCS: 72170

== ENCOUNTER → 2023-10-08 | Outpatient (CLI) | payer MEDICAID ==
[2023-10-08 11:34] LABS: T4, Free (Free Thyroxine) 1.37 ng/dL (0.80-1.80)
== END | disposition home or self-care (01) ==
LOC: LABMAIN 06:48
PROVIDERS: ATTEND Internal Medicine Medical Oncology
DX: R79.89 Other specified abnormal findings of blood chemistry (principal)
CPT/HCPCS: 84439; 84443

== ENCOUNTER → 2023-11-02 | Outpatient (CLI) | payer MEDICAID ==
--- NOTE | 2023-11-02 11:02 | CT ---
EXAMINATION TYPE: CT ChestAbdPelvis w con CT DLP: 1052.20 mGycm, Automated exposure control for dose reduction was used. DATE OF EXAM: 11/02/2023 10:46 AM COMPARISON: Left axilla ultrasound 12/16/2022, reported previous CT is not available for comparison. CLINICAL INDICATION:Male, 32 years old with history of Z92.89 PERSONAL HISTORY OF OTHER MEDICAL TREAT MENT; PHH, Metastatic melanoma, primary site LT axillary. Technique: Multiple axial images of the chest, abdomen, and pelvis were obtained following the intrav enous administration of 100 mL Isovue-300. Oral contrast was administered. Two-dimensional coronal an d sagittal reconstructions were obtained. Findings: CHEST: LUNGS/ PLEURA: The lung parenchyma appears unremarkable. AIRWAY: Patent and unremarkable.. HEART: Size within normal limits. No pericardial effusion. MEDIASTINUM: No evidence of adenopathy. Residual thymic tissue identified. VASCULATURE: No aortic aneurysm. MUSCULOSKELETAL: No acute osseous abnormalities. No aggressive osseous lesion. SOFT TISSUES/LYMPH NODES: Small bilateral gynecomastia. Mildly enlarged left axillary lymph nodes wit h the largest measuring 1.2 cm short axis (series 3, image 8). LOWER NECK: No significant findings. ABDOMEN: ABDOMEN LIVER: Unremarkable GALLBLADDER AND BILE DUCTS: Unremarkable. PANCREAS: Unremarkable. SPLEEN: Unremarkable. ADRENAL GLANDS: Unremarkable. KIDNEYS AND URETERS: No evidence of hydronephrosis or renal calculus. The ureters are unremarkable. PELVIS BLADDER: Unremarkable REPRODUCTIVE: Unremarkable. ABDOMEN & PELVIS STOMACH AND BOWEL: Stomach and duodenum are unremarkable . No focal bowel wall thickening. Enteric co ntrast reaches the mid small bowel. No evidence of bowel obstruction. PERITONEUM: No evidence of pneumoperitoneum or free fluid. VASCULATURE: No evidence of aortic aneurysm. MUSCULOSKELETAL: No acute osseous abnormalities. No aggressive osseous lesion. LYMPH NODES: No pathologically enlarged lymph nodes. A few nonenlarged bilateral inguinal lymph nodes identified. SOFT TISSUE/ABDOMINAL WALL: Unremarkable IMPRESSION: Few left axillary mildly enlarged lymph nodes with largest measuring up to 1.2 cm. These are smaller than previously biopsied 3.1 cm lymph node. Finding suggests positive response to therapy. No CT evid ence for metastatic disease within the remaining chest and abdomen/pelvis. If prior CT can be made av ailable, comparison could be made.
== END | disposition home or self-care (01) ==
LOC: RADCTMAIN 08:53
PROVIDERS: ATTEND Internal Medicine Medical Oncology
DX: C77.9 Secondary and unspecified malignant neoplasm of lymph node, unspecified (principal); C43.9 Malignant melanoma of skin, unspecified; Z92.89 Personal history of other medical treatment
CPT/HCPCS: 71260; 74177; Q9967

== ENCOUNTER → 2024-05-09 | Outpatient (CLI) | payer MEDICAID, SELFPAY ==
--- NOTE | 2024-06-10 14:26 | CT ---
Patient Ahmet Veronica ID [id number] Order # Procedure CT ChestAbdPelvis w con EXAMINATION TYPE: CT ChestAbdPelvis w con CT DLP: 1234 mGycm, Automated exposure control for dose reduction was used. DATE OF EXAM: 05/17/2024 8:46 AM COMPARISON: Report only 11/17/2023 addendum on 11/02/2023 exam CLINICAL INDICATION: Metastatic melanoma follow-up Technique: CT ChestAbdPelvis w con; Multiple axial images were obtained. Two-dimensional coronal and sagittal reconstructions were obtained. Contrast used: 100 Cc Isovue 300 Oral contrast used: None Findings: CHEST: LUNGS/ PLEURA: No focal consolidation, pneumothorax or pleural effusion. AIRWAY: Patent and unremarkable. HEART: Size within normal limits. MEDIASTINUM: No gross evidence of adenopathy. VASCULATURE: No aortic aneurysm. MUSCULOSKELETAL: No acute osseous abnormalities. SOFT TISSUES/LYMPH NODES: No priors are available for comparison lymph nodes in the left axilla measu re up to 8 mm in short axis. LOWER NECK: No significant findings. ABDOMEN: ABDOMEN LIVER: Unremarkable GALLBLADDER AND BILE DUCTS: Unremarkable. PANCREAS: Unremarkable. SPLEEN: Unremarkable. ADRENAL GLANDS: Unremarkable. KIDNEYS AND URETERS: No evidence of hydronephrosis or renal calculus. The ureters are unremarkable. PELVIS BLADDER: Unremarkable REPRODUCTIVE: Unremarkable. ABDOMEN & PELVIS STOMACH AND BOWEL: No evidence of bowel obstruction. PERITONEUM: No evidence of pneumoperitoneum or free fluid. VASCULATURE: No evidence of aortic aneurysm. MUSCULOSKELETAL: No acute osseous abnormalities LYMPH NODES: No gross evidence for lymphadenopathy. SOFT TISSUE/ABDOMINAL WALL: Unremarkable IMPRESSION: Exam limited without priors for direct image comparison. Report on prior dimension of 1.2 cm short ax is lymph node in the left axilla. Lymph nodes in the left axilla measure up to 8 mm in short axis on today's exam. No new or enlarging lymph nodes identified.
== END | disposition home or self-care (01) ==
LOC: RADCTMAIN 05:30
PROVIDERS: ATTEND Internal Medicine Medical Oncology
DX: C77.9 Secondary and unspecified malignant neoplasm of lymph node, unspecified (principal); C43.9 Malignant melanoma of skin, unspecified
CPT/HCPCS: 71260; 74177; Q9967

== ENCOUNTER → 2024-10-10 | Outpatient (CLI) | payer MEDICAID ==
--- NOTE | 2024-10-10 21:21 | MR ---
INDICATION: Patient age:Male; 33 years old; Reason for study: R90.89; [facility]. COMPARISON: Outside institution PET CT 08/18/2023, outside institution MRI brain 08/18/2023. TECHNIQUE: Multi planar, multi sequence imaging was performed through the brain. The patient was then given 8.5 cc of Gadobutrol intravenously and multi planar, T1 fat-saturation images were obtained. FINDINGS: The jeffries-white junctions, ventricular system, basal cisterns appear unremarkable. Age-appropriate cer ebral volume. Diffusion-weighted imaging shows no evidence of restricted diffusion to suggest acute/s ubacute infarct. Intracranial arterial flow voids are maintained. Midline structures show no abnormal ity. No new FLAIR signal abnormalities. Redemonstration of a developmental venous anomaly identified within the left frontal lobe. Stable round lesion within the right temporal lobe with associated susc eptibility artifact measuring up to 7 mm (series 502, image 249). 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 Demonstrates owen pheral enhancement with central dot of internal enhancement. No new suspicious enhancing lesions. The bone marrow signal is within normal limits. The globes are unremarkable. Moderate mucosal thicke everett of the left maxillary sinus. Mild mucosal thickening of the right maxillary sinus and ethmoid si nuses. Stable mixed cystic/solid lesion with associated FLAIR signal hyperintensity within the inferi or right maxillary sinus measuring 1.6 cm. Demonstrates T1 signal hyperintensity. There is questionab le enhancement due to intrinsic T1 signal hyperintensity. No corresponding FDG activity on prior PET/ CT. IMPRESSION: 1. Overall stable examination with no new enhancing lesions identified. 2. 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 3. Stable incidental left frontal lobe developmental venous anomaly. 4. No evidence for acute/subacute infarct. 5. Stable nonspecific right maxillary sinus nasal polyp. No corresponding FDG activity on prior PET/ CT. Could represent a variety of etiologies with metastasis not excluded. [facility], , 10/10/2024 9:19 PM
== END | disposition home or self-care (01) ==
LOC: RADMRIMAIN 20:15
PROVIDERS: ATTEND Internal Medicine Medical Oncology
DX: C77.9 Secondary and unspecified malignant neoplasm of lymph node, unspecified (principal); J33.9 Nasal polyp, unspecified; R90.89 Other abnormal findings on diagnostic imaging of central nervous system
CPT/HCPCS: 70553; A9585

== ENCOUNTER 2024-10-25 09:07 | Day surgery (SDC) | payer MEDICAID, SELFPAY ==
[~2024-10-25 09:07] MED LIST: LIDOCAINE 1% (10MG/ML) FOR IV START INTRADERMA PRN
[2024-10-25 09:32] VITALS: TEMP 97.8
[2024-10-25] MEDS: IV FLUID CONTINUATION 1,000 ML IV ONE (09:35)
[2024-10-25] MEDS: LACTATED RINGERS 1,000 ML IV SCH (09:35)
[2024-10-25] MEDS ORDERED: PROPOFOL 10 MG/ML 20 ML VIAL IV ONE (10:19)
--- NOTE | 2024-10-25 10:26 | P.GSHP ---
History of Present Illness H&P Date: 10/25/24 Chief Complaint: Rectal bleeding 33-year-old male here for colonoscopy. Patient with intermittent rectal bleeding. Strains with bowel movements. Personal history of melanoma. Past Medical History Past Medical History: Cancer Additional Past Medical History / Comment(s): stage 3 melanoma January 2023 - completed immunotherapy March 2023 History of Any Multi-Drug Resistant Organisms: None Reported Past Surgical History: No Surgical Hx Reported Additional Past Surgical History / Comment(s): lt ankle fracture at age 5; wisdom teeth removal Past Anesthesia/Blood Transfusion Reactions: No Reported Reaction Smoking Status: Never smoker - Past Family History Father Family Medical History: No Reported History Medications and Allergies Home Medications Medication Instructions Recorded Confirmed Type No Known Home Medications 10/20/24 10/25/24 History Allergies Allergy/AdvReac Type Severity Reaction Status Date / Time No Known Allergies Allergy Verified 10/25/24 09:25 Surgical - Exam Vital Signs Temp Pulse Resp BP Pulse Ox 97.8 F 73 12 128/73 98 10/25/24 09:28 10/25/24 09:28 10/25/24 09:28 10/25/24 09:28 10/25/24 09:28 Physical exam: General: Well-developed, well-nourished HEENT: Normocephalic, sclerae nonicteric Abdomen: Nontender, nondistended Extremities: No edema Neuro: Alert and oriented Assessment and Plan (1) Rectal bleeding Narrative/Plan: Will proceed with colonoscopy at this time. Current Visit: Yes Status: Acute Code(s): K62.5 - HEMORRHAGE OF ANUS AND RECTUM SNOMED Code(s): 79324095
--- NOTE | 2024-10-25 10:40 | P.PCN ---
Date of Procedure: 10/25/24 Procedure(s) Performed: PREOPERATIVE DIAGNOSIS: Rectal bleeding POSTOPERATIVE DIAGNOSIS: Mild proctitis PROCEDURE: Colonoscopy with biopsy ANESTHESIA: MAC SURGEON: Mansoor Roach M.D. SPECIMENS: Rectum ENDOSCOPIC PROCEDURE: The patient was placed on the endoscopy table in the left decubitus position. The Olympus colonoscope was inserted into the anus and passed under direct visualization to the base of the cecum. The appendiceal orifice was visualized. From that point the scope was slowly withdrawn inspecting all surfaces carefully. There were no neoplastic inflammatory or polypoid lesions throughout the cecum, ascending, transverse, descending, and sigmoid colon. In the distal rectum there was a small area of mild inflammation and petechiae. Biopsies were taken. This could be related to the scope itself. Retroflexion was normal. The patient had very small internal hemorrhoids without any evidence of recent or active bleeding. No visible fissure or fistula was seen. No visible diverticulosis was seen. Digital rectal examination was normal. The patient was taken to the recovery room in stable condition per anesthesia guidelines. RECOMMENDATIONS: Await biopsy results. Add MiraLAX daily for chronic constipation complaints.
[2024-10-25 11:02] VITALS: BP 110/72; PULSE 64; RESP 16
== END 2024-10-25 11:23 | disposition home or self-care (01) ==
LOC: ORWHC2ENDO 09:07
PROVIDERS: ATTEND Surgery
DX: K64.8 Other hemorrhoids (principal); Z85.820 Personal history of malignant melanoma of skin
CPT/HCPCS: 88305; 45380; J2704

== ENCOUNTER → 2024-12-06 | Outpatient (CLI) | payer MEDICAID | END | disposition home or self-care (01) | LOC: LABMAIN 06:48 | PROVIDERS: ATTEND Internal Medicine Medical Oncology | DX: C77.9 Secondary and unspecified malignant neoplasm of lymph node, unspecified (principal); R79.89 Other specified abnormal findings of blood chemistry; Z92.89 Personal history of other medical treatment | CPT/HCPCS: 84443; 84481 ==

== ENCOUNTER → 2025-01-13 | Outpatient (CLI) | payer MEDICAID ==
--- NOTE | 2025-01-15 15:08 | CT ---
EXAMINATION TYPE: CT ChestAbdPelvis w con DATE OF EXAM: 01/13/2025 2:34 AM COMPARISON: 10/14/2024 CLINICAL INDICATION: Male, 34 years old with history of Metastaic Melanoma to lymph node follow up, M etasatic Melanoma to left auxilla TECHNIQUE: CT ChestAbdPelvis w con , with sagittal coronal reformats. If MIP/3-D images were created, there are created on a separate workstation. Contrast used:100 mL of Isovue 300 with IV Contrast, (none if empty) Oral contrast used: with Oral Contrast (none if empty) CT DLP: 1103.9 mGycm, Automated exposure control for dose reduction was used. FINDINGS: CT CHEST: Portion of the thyroid visualized is normal. No suspicious lung nodules or focal infiltrates are present. No enlarged mediastinal or hilar adenopathy is evident. No significant coronary artery calcification s. The ascending aorta diameter at the level of the main pulmonary artery is 3.9 cm. The main pulmonary artery diameter at the bifurcation is 2.[address] ABDOMEN: Liver: Normal Spleen: Normal Pancreas: Normal Adrenal glands: The adrenal glands are normal. Gallbladder: Normal Kidneys: No masses are evident. No hydronephrosis is present. No cysts are present. Delayed images were obtained through the kidneys, which remain unremarkable. Aorta: Vascular calcification is within the aorta. Inferior vena cava: Normal. CT PELVIS: Loops of bowel within the abdomen and pelvis are normal. There are loops of bowel which are incom pletely distended or lack oral contrast limiting their evaluation. Appendix: Normal as visualized. Urinary bladder: Normal. Genitourinary structures: Osseous structures: No suspicious lytic or sclerotic lesions. Lymphadenopathy: There is a 0.9 cm left inguinal lymph node. Couple of shotty lymph nodes are within the bilateral inguinal regions. No iliac chain or obturator canal lymphadenopathy is evident. No susp icious periaortic or retrocaval adenopathy. No retrocrural adenopathy. No mediastinal or hilar adenop athy. Some shotty lymphadenopathy within the axillary regions. Previous prominent right hilar lymph n ode is not evident. There is a 0.9 cm mesenteric lymph node. Series 201 and 80 IMPRESSION: 1. Previous enlarged adenopathy has diminished or resolved over the interval. No enlarged adenopathy present at this time. 2. No suspicious changes for metastatic disease. [facility], , 01/15/2025 3:06 PM
== END | disposition home or self-care (01) ==
LOC: RADCTMAIN 00:50
PROVIDERS: ATTEND Internal Medicine Medical Oncology
DX: C77.9 Secondary and unspecified malignant neoplasm of lymph node, unspecified (principal); Z92.89 Personal history of other medical treatment; Z85.820 Personal history of malignant melanoma of skin; R59.0 Localized enlarged lymph nodes
CPT/HCPCS: 71260; 74177; Q9967